=== PATIENT | male | born 1960 | race Caucasian/White ===

== ENCOUNTER → 2016-08-19 | Outpatient (CLI) | payer BC | LOC: KOH-I 08:00 | DX: R10.13 Epigastric pain (principal); R11.0 Nausea; K80.50 Calculus of bile duct without cholangitis or cholecystitis without obstruction | CPT/HCPCS: 76705 ==

== ENCOUNTER 2020-12-21 19:46 | Inpatient (IN) | payer OTHER ==
[~2020-12-21] VITALS: Ht 185.4 cm; Wt 99.8 kg
[2020-12-21 20:59] LABS: HEMOGLOBIN 16.5 gm/dl (14.0-17.5); RED BLOOD COUNT 5.58 M/UL (4.20-5.50); WHITE BLOOD COUNT 7.6 K/UL (4.5-11.0)
[2020-12-21 21:11] LABS: BUN/CREATININE RATIO 15 (0-10)
[2020-12-22 03:56] LABS: HEMOGLOBIN 16.2 gm/dl (14.0-17.5); RED BLOOD COUNT 5.55 M/UL (4.20-5.50)
[2020-12-22 03:58] LABS: WHITE BLOOD COUNT 5.3 K/UL (4.5-11.0)
[2020-12-22 04:15] LABS: BUN/CREATININE RATIO 20 (0-10)
[2020-12-22] MEDS ORDERED: FAMOTIDINE40 MG PO (11:00)
[2020-12-22] MEDS ORDERED: PAROXETINE HCL20 MG PO (11:00)
[2020-12-22] MEDS ORDERED: LISINOPRIL10 MG PO (11:01)
--- NOTE | 2020-12-23 03:12 | NUR ---
CALLED RT AT 0022 PT ON HFNC 15L AND STATS IN -. PT WAS SUPOSE TO BE ON AIRVO BUT NOT TAMI. CALLED DR BERNABE AT 0029 STATED ABOVE, HE GAVE ORDER FOR BIPAP 02/14, CALLED RT AT 0033, RT ON FLOOR AND BROUGHT AIRVO PT IS ON 40L AT 82% , AT 0230 PT STATS AT 82, CALLED RT AND PT IS NOW AT 50L 88% SAT IS 92% AT THIS TIME.
[2020-12-23 08:16] LABS: HEMOGLOBIN 15.2 gm/dl (14.0-17.5); RED BLOOD COUNT 5.42 M/UL (4.20-5.50)
[2020-12-23 08:26] LABS: BUN/CREATININE RATIO 35 (0-10)
[2020-12-23 08:43] LABS: WHITE BLOOD COUNT 8.2 K/UL (4.5-11.0)
--- NOTE | 2020-12-23 09:03 | NUR ---
PATIENTS O2 SATS HANGING IN THE LOW 90'S ON 50 AND 88%. CALLED DR PEDROZA TO INFORM HIM OF PATIENT STATUS THAT HE MAY NEED TO CONSIDER MOVING PATIENT TO PCU. DR. PEDROZA RESPONDED "PRAY FOR HIM". WAS NOT ABLE TO MAKE RECOMMENDATION TO DOCTOR BEFORE HE MADE HIS ROCOMMENDATION OF PRAYER AND HUNG UP.
--- NOTE | 2020-12-24 07:10 | NUR ---
APPROX 0605 PATIENT SATS WAS 78% PT IS MAX OUT ON AIRVO AT THIS TIME, HAD PT SIT UP IN BED, START TAKING DEEP BREATHS AND ALSO HAD PT BREATH IN I/S. 0615 DR WILSON WAS NOTIFIED HE ORDERED BIPAP 16/02 FIRST TIME BEING ON BIPAP PT NEEDS TRANSFERRED TO PCU, 06 RT NOTIFIED, 06 NOTIFIED WITH SONY BARCLAY WILL CHECK ON SWITCHING OF PT TO PCU , TRANSFER IS ORDERED, 06 RT IN ROOM PLACING BIPAP 16/8, FI02 80% PT SATS ARE 95% AT THIS TIME. REPORT GIVEN TO ANDRÉS HEBERT
[2020-12-24 12:54] LABS: HEMOGLOBIN 15.2 gm/dl (14.0-17.5); RED BLOOD COUNT 5.16 M/UL (4.20-5.50)
[2020-12-24 13:11] LABS: BUN/CREATININE RATIO 35 (0-10)
[2020-12-25 02:57] LABS: HEMOGLOBIN 14.5 gm/dl (14.0-17.5); RED BLOOD COUNT 4.98 M/UL (4.20-5.50); WHITE BLOOD COUNT 9.1 K/UL (4.5-11.0)
[2020-12-25 03:23] LABS: BUN/CREATININE RATIO 33 (0-10)
--- NOTE | 2020-12-25 04:51 | NUR ---
AT APPROXIMATELY 0430 PT WAS NOTIFIED THAT HIS MOTHER IN ROOM 4107 WAS DECLINING. PT REQUESTED TO SEE HER. I CONTACTED RT CHRISTOPHER TO SEE IF IT WAS POSSIBLE TO OXYGENATE HIM ENOUGH TO MAKE THIS HAPPEN. HE RECOMMENDED TRANSPORTING PATIENT ON NC AND NRB BOTH AT 15L/MIN FOR A SHORT VISIT. I NOTIFIED STEVE OF THIS AND RECEIVED THE ORDER TO LET HIM VISIST.
--- NOTE | 2020-12-25 06:16 | NUR ---
AT APPROXIMATELY 0500 MAINTENANCE SHOP WELDER CHRISTOPHER AND I ESCORTED PT TO ROOM 4107 TO VISIT HIS MOTHER. THIS WAS APPROVED BY [employer]IST. CHRISTOPHER PLACED HIM ON BOTH 15L NC AND NRB. PULSE OXIMETRY WAS MONITORED BOTH REMOTELY VIA TELE AND IN REAL TIME VIA A PORTABLE PULSE OX. THE PT TOLERATED THIS FINE WITH SPO2 BETWEEN 93-98%. PT VISITED FOR APPROXIMATELY 5 MINUTES BEFORE RETURNING TO HIS ROOM AND BEING PLACED BACK ON AIRVO PER RT CHRISTOPHER WITHOUT COMPLICATIONS.
[2020-12-26 06:41] LABS: HEMOGLOBIN 14.9 gm/dl (14.0-17.5); RED BLOOD COUNT 5.15 M/UL (4.20-5.50); WHITE BLOOD COUNT 10.1 K/UL (4.5-11.0)
[2020-12-26 07:06] LABS: BUN/CREATININE RATIO 29 (0-10)
[2020-12-26] MEDS ORDERED: BUDESONIDE0.5 MG/2 M NEB (10:14)
[2020-12-26] MEDS ORDERED: IPRAT-ALBUT 0.5-3 ML INH (10:14)
[2020-12-26] MEDS ORDERED: PROTONIX 40 MG40 M1 PO (10:14)
[2020-12-26] MEDS ORDERED: DEXAMETHASONE2 MG PO (10:22)
[2020-12-26] MEDS ORDERED: ELIQUIS 2.5 MG2.5 MG PO (10:22)
[2020-12-26] MEDS ORDERED: NEBULIZER UNIT INH (10:24)
== END 2020-12-26 13:33 | disposition home or self-care (01) | DRG 177 ==
LOC: ER1 19:46 → CDU 22:10 → MED SURG 4 22:10
PROVIDERS: Emergency Medicine; Internal Medicine; ADMIT Internal Medicine
PROC: 8E0ZXY6 Isolation (ICD-10-PCS; principal; 2020-12-22)
PROC: XW033E5 Introduction of Remdesivir Anti-infective into Peripheral Vein, Percutaneous Approach, New Technology Group 5 (ICD-10-PCS; 2020-12-22)
PROC: 3E0333Z Introduction of Anti-inflammatory into Peripheral Vein, Percutaneous Approach (ICD-10-PCS; 2020-12-22)
PROC: XW0DXM6 Introduction of Baricitinib into Mouth and Pharynx, External Approach, New Technology Group 6 (ICD-10-PCS; 2020-12-23)
PROC: 5A09457 Assistance with Respiratory Ventilation, 24-96 Consecutive Hours, Continuous Positive Airway Pressure (ICD-10-PCS; 2020-12-24)
DX: U07.1 COVID-19 (principal); J12.82 Pneumonia due to coronavirus disease 2019; J96.01 Acute respiratory failure with hypoxia; I10 Essential (primary) hypertension; F41.9 Anxiety disorder, unspecified; K21.9 Gastro-esophageal reflux disease without esophagitis; Z79.01 Long term (current) use of anticoagulants; Z79.899 Other long term (current) drug therapy; Z87.891 Personal history of nicotine dependence; Z82.49 Family history of ischemic heart disease and other diseases of the circulatory system; Z90.49 Acquired absence of other specified parts of digestive tract
CPT/HCPCS: 36415; 36600; 71045; 80053; 82550; 82553; 82728; 82803; 83615; 83874; 84439; 84443; 84484; 85025; 85379; 86140; 93005; 94640; 94660; 94664; 94760; 99285; J0456; J0696; J1100; J1650; J7030

== ENCOUNTER → 2021-01-09 | Outpatient (CLI) | payer OTHER ==
[~2021-01-09] MED LIST: BUDESONIDE0.5 MG/2 M NEB; DEXAMETHASONE2 MG PO; ELIQUIS 2.5 MG2.5 MG PO; FAMOTIDINE40 MG PO; IPRAT-ALBUT 0.5-3 ML INH; LISINOPRIL10 MG PO; NEBULIZER UNIT INH; PAROXETINE HCL20 MG PO; PROTONIX 40 MG40 M1 PO
== END ==
LOC: HEART 5 09:59 → EXRD 09:59
DX: J96.01 Acute respiratory failure with hypoxia (principal)
CPT/HCPCS: 71046

== ENCOUNTER → 2021-02-11 | Outpatient (CLI) | payer OTHER | LOC: EXRD 14:57 | DX: R06.02 Shortness of breath (principal) | CPT/HCPCS: 71046 ==